=== PATIENT | female | born 1965 | race Caucasian/White ===

== ENCOUNTER 2019-08-22 10:06 | Emergency (ER) | payer MEDICARE, MEDICAID ==
[~2019-08-22] VITALS: Ht 162.6 cm; Wt 86.2 kg
[~2019-08-22 10:06] MED LIST: VICODIN
[2019-08-22 10:20] VITALS: BP 146/74
== END 2019-08-22 11:21 | disposition home or self-care (01) ==
LOC: ER 10:06
DX: S46.911A Strain of unspecified muscle, fascia and tendon at shoulder and upper arm level, right arm, initial encounter (principal); I10 Essential (primary) hypertension; W19.XXXA Unspecified fall, initial encounter; Y93.89 Activity, other specified; Y92.89 Other specified places as the place of occurrence of the external cause; Y99.8 Other external cause status
CPT/HCPCS: 73030